=== PATIENT | female | born 1980 | race Caucasian/White ===

== ENCOUNTER 2020-08-26 18:28 | Emergency (ER) | payer OTHER, SELFPAY ==
--- NOTE | ~2020-08-26 | XR_ITS ---
EXAMINATION: XR knee LT min 4V DATE: 08/26/2020 19:07 INDICATION: Medial left knee pain with weightbearing TECHNIQUE: Anteroposterior, 2 oblique and crosstable lateral views of the left knee were obtained COMPARISON: None. FINDINGS: Alignment is normal. No fracture. Joint spaces appear normal on nonweightbearing imaging. Moderate-s ized left knee joint effusion without layering lipohemarthrosis. Soft tissues are otherwise unremarka ble. IMPRESSION: 1. Moderate-sized left knee joint effusion. No osseous abnormality. Reviewed, dictated and finalized at location A.
[2020-08-26 18:43] VITALS: BP 134/79; PULSE 90; RESP 16; TEMP 36.5; O2SAT 98
--- NOTE | 2020-08-26 20:10 | ED.LOWEXIN ---
HPI - Extremity Injury (Lower) General Chief Complaint: Extremity Injury, Lower Stated Complaint: HAVING PROBLEMS WITH MY KNEE Time Seen by Provider: 08/26/20 18:45 Source: patient Mode of arrival: ambulatory Limitations: no limitations History of Present Illness HPI Narrative: Patient is a 40-year-old female who presents complaining of left knee and leg pain x4 days. She reports taking 800 mg of ibuprofen x6 today without relief. She denies injury. She reports difficulty ambulating. Edema noted to right knee. Patient reports a history of drug abuse and reports taking 190 mg of methadone daily. Patient denies all other complaints at this time. MD complaint: knee injury Related Data Allergies Allergy/AdvReac Type Severity Reaction Status Date / Time No Known Allergies Allergy Mild Unverified 06/05/11 22:16 Review of Systems Review of Systems: Narrative: CONSTITUTIONAL: Denies fever, chills, or sweats. EYES: Denies visual changes, redness, or discharge. ENT: Denies rhinorrhea, congestion, sore throat, or otalgia. CARDIOVASCULAR: Denies chest pain, palpitations, or edema. RESPIRATORY: Denies cough or dyspnea. GASTROINTESTINAL: Denies abdominal pain, nausea, vomiting, or diarrhea. GENITOURINARY: Denies dysuria or hematuria. SKIN: Denies rash or itching. MUSCULOSKELETAL: Reports right knee and leg pain NEUROLOGIC: Denies headache, numbness, dizziness, or weakness. PSYCHIATRIC: Denies anxiety or depression. PMFSH Past Medical History Medical History (Updated 08/26/20 @ 20:45 by MIREYA Govea) Drug abuse and dependence Ganglion cyst Surgical History Surgical History History of hysterectomy Hx of cholecystectomy Family History Family History (Updated 08/26/20 @ 20:13 by MIREYA Govea) Other DVT (deep venous thrombosis) Heart disease Hypertension Social History Social History (Updated 08/26/20 @ 20:14 by MIREYA Govea) Smoking status: Current every day smoker Tobacco type: cigarettes Alcohol intake: current Alcohol use details: Occasional Substance use: current Substance use type: marijuana and opiates Living arrangements: with family Exam Narrative: Exam Narrative: GENERAL: Well-appearing, well-nourished, and in no acute distress. HEAD: Normocephalic, atraumatic. EYES: EOMI. No redness or drainage. Conjunctiva are normal. ENT: Mucous membranes pink and moist. CHEST: No respiratory distress. Clear to auscultation. HEART: Regular rate and rhythm. No murmur appreciated. Normal peripheral pulses. GI: Soft, nontender without rebound, or guarding. EXTREMITIES: Edema to left lower leg, tenderness with palpation to knee and posterior knee, greater than 3 cm difference between right and left calf. SKIN: Warm, dry, no rash. NEURO: No focal deficits. Alert and oriented x3. Gait steady. PSYCH: Normal affect. No signs of depression or anxiety. Course Vital Signs Vital signs: Vital Signs Temperature 36.5 C 08/26/20 18:43 Pulse Rate 90 08/26/20 18:43 Respiratory Rate 16 08/26/20 18:43 Blood Pressure 134/79 08/26/20 18:43 Pulse Oximetry 98 08/26/20 18:43 Temperature 36.5 C 08/26/20 18:43 Pulse Rate 90 08/26/20 18:43 Respiratory Rate 16 08/26/20 18:43 Blood Pressure 134/79 08/26/20 18:43 Pulse Oximetry 98 08/26/20 18:43 Reviewed MDM - Extremity Injury (Lower) MDM Narrative Medical decision making narrative: Patient is to continue with swelling to left lower extremity. D-dimer positive. Patient to have ultrasound venous Doppler in the a.m. Discussed with patient starting anticoagulation at this time which she refuses. She reports that she would much rather week to see if they had a DVT . Patient is stable for discharge to home with outpatient follow-up as discussed. Differential Diagnosis Differential diagnosis: Likely other (Fracture, sprain, strain, contusion, effu
[2020-08-26 20:23] LABS: D Dimer 0.75 ug/mL (<0.48)
--- NOTE | 2020-08-26 20:39 | PC.NURSE ---
erp toni dee entered room and found pt and boyfriend out of it with white powder on the hands.
== END 2020-08-26 21:13 | disposition home or self-care (01) ==
PROVIDERS: Emergency Provider Nurse Practitioner; PCP Physician Assistant
DX: M79.89 Other specified soft tissue disorders (principal); M25.462 Effusion, left knee
CPT/HCPCS: 36415; 73564; 85380; 99283

== ENCOUNTER 2020-08-27 08:21 | Outpatient (CLI) | payer OTHER, SELFPAY ==
--- NOTE | ~2020-08-27 | US_ITS ---
EXAMINATION:US venous doppler LE LT INDICATION:Left lower extremity pain and swelling TECHNIQUE: Multiple grayscale, color flow and Doppler images of the left lower extremity deep venous systems were obtained and reviewed. COMPARISON:No prior studies for comparison. FINDINGS: The common femoral, superficial femoral and popliteal veins demonstrate normal respiratory variation, augmentation and compressibility. Color flow is also seen within the posterior tibial, pe roneal, greater saphenous and profunda veins. IMPRESSION: 1: No lower extremity deep venous thrombosis. Reviewed, dictated and finalized at location B.
== END 2020-08-27 08:22 | disposition home or self-care (01) ==
PROVIDERS: PCP Physician Assistant; Visit Provider Physician Assistant
DX: S89.90XA Unspecified injury of unspecified lower leg, initial encounter (principal); X58.XXXA Exposure to other specified factors, initial encounter
CPT/HCPCS: 93971